=== PATIENT | male | born 1965 | race American Indian/Alaskan Native ===

== ENCOUNTER 2021-01-21 06:24 | Day surgery (SDC) | payer OTHER ==
[~2021-01-21] VITALS: Ht 198.1 cm; Wt 75.0 kg
[~2021-01-21 06:24] MED LIST: ASPIRIN EC81 MG PO; ATORVASTATIN CA40 MG PO; B-12 DOTS500 MCG PO; INSULIN AS100 UNIT/1 SQ; LANTUS100 UNITS/ SUB-Q; LISINOPRIL5 MG PO; MAGNESIUM400 MG PO; METFORMIN HCL1000 MG PO; NEURONTIN300 MG PO; NOVOLIN R100 UNIT/1 SUB-Q; OZEMPIC1 MG/0.71 SQ; SIMVASTATIN80 MG PO; TRULICITY0.75 MG/0. SQ
--- NOTE | 2021-01-21 08:09 | NUR ---
01/21/21 0809 Maya Perez 0805 PATIENT ARRIVES TO PACU SLEEPING. AWAKENS WITH VERBAL STIMULI. RESP EVEN AND UNLABORED, NC AT 2 LITERS.
--- NOTE | 2021-01-22 08:08 | OR ---
[facility] [address] [place], [place] [address] Signed DATE OF OPERATION: 01/21/2021 SURGEON: Lali Dean MD PREOPERATIVE DIAGNOSIS: Screening. POSTOPERATIVE DIAGNOSIS: Poor bowel prep. PROCEDURE: Colonoscopy without biopsy. ESTIMATED BLOOD LOSS: None. INDICATIONS: Everette is a 55-year-old diabetic gentleman, asked to see me for his initial screening colonoscopy. He has no lower GI complaints. There is no family history of colon cancer or polyps. In the office, I gave him a pamphlet on colonoscopy. He understands the nature of the test along with the risks including, but not limited to gas bloating, crampy abdominal pain, bleeding, perforation requiring surgery, and missed diagnosis. We also reviewed the written instructions for bowel prep line by line. He also understands the need for IV conscious sedation. He had expressed understanding and wished to proceed. PROCEDURE NOTE: Everette was taken into our endoscopy suite and placed in the left lateral decubitus position. He was given 6 mg of Versed and 125 mcg of fentanyl to cover the case. A digital rectal exam was performed and this revealed his prostate is moderately enlarged and indurated. The adult colonoscope was introduced and advanced under direct visualization of camera. Unfortunately, he had a moderately poor bowel prep. Much of the left colon was contained thick particulate liquid dark stool matter. We very carefully made our way through and finally found the ileocecal valve. It took us a few minutes to suction out most of the liquid particulate stool matter from the cecum. The scope was then slowly withdrawn. We took several pictures throughout for photodocumentation. The cecum, right colon, transverse colon were unremarkable. Again, much of the left colon was involved in heavy liquid particulate stool matter and we could not visualize the mucosa. We saw no diverticula. The rectum was unremarkable. After this, the gas was suctioned out and colonoscope removed. Everette tolerated the Electronically Signed By: LALI DEAN MD 01/22/21 0808 PATIENT NAME: EVERETTE SAUCEDO ANTHONY OPERATIVE REPORT DATE OF : 65 REPORT #: [id number] PHYSICIAN: LALI DEAN MD PCP: [facility] REPORT IS CONFIDENTIAL AND NOT TO BE RELEASED WITHOUT AUTHORIZATION [address] [address] Signed procedure quite well. RECOMMENDATIONS: Everette should return within a year to repeat his colonoscopy with a double bowel prep. Lali Dean MD ALB/MODL /[id number] cc: Lali Dean MD [facility] Copies: LALI DEAN MD ~ Electronically Signed By: LALI DEAN MD 01/22/21 0808 PATIENT NAME: EVERETTE SAUCEDO OPERATIVE REPORT DATE OF : 65 REPORT #: [id number] PHYSICIAN: LALI DEAN MD PCP: [facility] REPORT IS CONFIDENTIAL AND NOT TO BE RELEASED WITHOUT AUTHORIZATION
== END 2021-01-21 08:46 | disposition home or self-care (01) ==
LOC: OPS 06:24 → DS 06:24 → OPS 06:45
PROVIDERS: ATTEND Colon & Rectal Surgery
PROC: 0DJD8ZZ Inspection of Lower Intestinal Tract, Via Natural or Artificial Opening Endoscopic (ICD-10-PCS; principal; 2021-01-21 06:45)
DX: Z12.11 Encounter for screening for malignant neoplasm of colon (principal); N40.0 Benign prostatic hyperplasia without lower urinary tract symptoms; E11.42 Type 2 diabetes mellitus with diabetic polyneuropathy; E78.5 Hyperlipidemia, unspecified; I10 Essential (primary) hypertension; E11.36 Type 2 diabetes mellitus with diabetic cataract; H25.9 Unspecified age-related cataract; Z79.82 Long term (current) use of aspirin; Z79.4 Long term (current) use of insulin
CPT/HCPCS: 99153; G0500; J2250; J3010; J7121

== ENCOUNTER 2021-08-06 12:18 | Emergency (ER) | payer OTHER ==
[~2021-08-06] VITALS: Ht 167.6 cm; Wt 74.8 kg
--- OUTSIDE RECORDS SUMMARY | 2021-08-06 12:20 | XMS ---
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 Alfie has no Care Guidelines for this patient. Leon VISIT COUNT (12 MO.) 1 [facility] TOTAL 1 NOTE: Visits indicate total known visits. ED/C VISIT TRACKING (12 MO.) 08/06/2021 12:19 [facility] Liu [place] TYPE: Emergency COMPLAINT: - HYPERTENSION INPATIENT VISIT TRACKING (12 MO.) No inpatient visits to display in this time frame [id number]
== END 2021-08-06 14:45 | disposition home or self-care (01) ==
LOC: ED 12:18
DX: I10 Essential (primary) hypertension (principal); E11.9 Type 2 diabetes mellitus without complications; Z79.899 Other long term (current) drug therapy; Z79.82 Long term (current) use of aspirin; Z79.84 Long term (current) use of oral hypoglycemic drugs; Z79.4 Long term (current) use of insulin
CPT/HCPCS: 99285

== ENCOUNTER 2022-07-09 15:50 | Emergency (ER) | payer OTHER ==
[~2022-07-09] VITALS: Ht 167.6 cm; Wt 72.2 kg
--- OUTSIDE RECORDS SUMMARY | 2022-07-09 15:52 | XMS ---
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 PHONE: [phone] Alfie has no Care Guidelines for this patient. Care History Medical/Surgical 08/07/2021 [facility] - PATIENT IS [facility] ELIGIBLE, \T\middot;\T\nbsp; PLEASE REFER PATIENT TO [facility] FOR NON EMERGENT MEDICAL NEEDS. \T\middot;\T\nbsp; [facility] CAN SEE PATIENTS SAME DAY FOR APTS IF PATIENT CALLS FIRST THING IN THE MORNING. E.D. VISIT COUNT (12 MO.) 2 [facility] TOTAL 2 NOTE: Visits indicate total known visits. 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
[2022-07-09] MEDS ORDERED: BACTRIM DS TAB1 EACH PO (21:09)
[2022-07-09] MEDS ORDERED: HYDROCODON-ACE1 EA10 PO (21:09)
== END 2022-07-09 22:05 | disposition home or self-care (01) ==
LOC: ED 15:50
DX: L03.115 Cellulitis of right lower limb (principal); I10 Essential (primary) hypertension; E11.9 Type 2 diabetes mellitus without complications; Z79.899 Other long term (current) drug therapy; Z79.82 Long term (current) use of aspirin; Z79.84 Long term (current) use of oral hypoglycemic drugs; Z79.4 Long term (current) use of insulin
CPT/HCPCS: 36415; 73700; 80048; 85025; 86140; 96374; 96375; 99284-25; A9270; J2270; J2405

== ENCOUNTER 2022-07-16 09:06 | Emergency (ER) | payer OTHER ==
[~2022-07-16] VITALS: Ht 167.6 cm; Wt 69.4 kg
[~2022-07-16 09:06] MED LIST changes: +BACTRIM DS TAB1 EACH PO; +HYDROCODON-ACE1 EA10 PO
--- OUTSIDE RECORDS SUMMARY | 2022-07-16 09:08 | XMS ---
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 Care History Medical/Surgical 08/07/2021 [facility] - PATIENT IS [facility] ELIGIBLE, \T\middot;\T\nbsp; PLEASE REFER PATIENT TO [facility] FOR NON EMERGENT MEDICAL NEEDS. \T\middot;\T\nbsp; [facility] CAN SEE PATIENTS SAME DAY FOR APTS IF PATIENT CALLS FIRST THING IN THE MORNING. E.D. VISIT COUNT (12 MO.) 3 [facility] TOTAL 3 NOTE: Visits indicate total known visits. 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
[2022-07-16] MEDS ORDERED: TAMIFLU75 MG PO (12:35)
== END 2022-07-16 12:43 | disposition home or self-care (01) ==
LOC: ED 09:06
DX: J10.1 Influenza due to other identified influenza virus with other respiratory manifestations (principal); K59.00 Constipation, unspecified; E11.40 Type 2 diabetes mellitus with diabetic neuropathy, unspecified; I10 Essential (primary) hypertension; Z79.899 Other long term (current) drug therapy; Z79.82 Long term (current) use of aspirin; Z79.4 Long term (current) use of insulin; Z20.822 Contact with and (suspected) exposure to COVID-19
CPT/HCPCS: 87502; 96372; 99283; C9803; J2212; U0003